=== PATIENT | male | born 1940 | race Caucasian/White ===

== ENCOUNTER 2021-09-04 08:52 | Observation (INO) ==
[2021-09-04] MEDS ORDERED: NS 0.9% 1000 ml BAG 1,000 ML IV ONE (09:03)
[2021-09-04] MEDS ORDERED: Iodixanol (CONTRAST) 320 MG/ML 100 ML SDV IV ONE (09:24)
[2021-09-04 09:47] LABS: ABS Eosinophils 0.2 10^3/ul (0-0.6); ABS Lymphocytes 1.3 10^3/ul (1.0-4.8); ABS Monocytes 0.3 10^3/ul (0-0.8); ABS Neutrophils 4.3 10^3/ul (1.5-7.7); Hematocrit 45 % (42-52); Hemoglobin 15.1 g/dL (14.0-18.0); Lymphocyte % 21.8 %; Mean Corpuscular HGB Conc 33 g/dL (31-36); Mean Corpuscular Hemoglobin 31 pg (27-31); Mean Corpuscular Volume 92 fL (80-94); Mean Platelet Volume 10.2 fL (7.4-10.4); Nucleated Red Blood Cells % 0.1; Platelet Count 186 10^3/uL (150-450); Red Blood Count 4.91 10^6 /uL (4.18-5.48); Red Cell Distribution Width 13 % (10-15); White Blood Count 6.2 10^3/uL (3.5-10.8)
[2021-09-04 10:00] LABS: Activated Partial Thrombo Time 29.3 seconds (26.0-38.0); INR 1.07 (0.86-1.15)
[2021-09-04 10:12] LABS: Albumin/Globulin Ratio 1.5 (1-3); Globulin 2.7 g/dL (2-4); HDL Cholesterol 45.3 mg/dL; Potassium 3.8 mmol/L (3.5-5.0); Total Bilirubin 1.3 mg/dL (0.2-1.0); Total Protein 6.7 g/dL (6.4-8.9); eGFR CKD-EPI 85.2 (>60)
[2021-09-04] MEDS ORDERED: Ondansetron 4 mg VIAL 2 MG/ML 2 ml VIAL IV PRN (17:59)
[2021-09-05 08:40] LABS: Albumin 3.6 g/dL (3.2-5.2); Albumin/Globulin Ratio 1.4 (1-3); Calcium 8.7 mg/dL (8.6-10.3); Globulin 2.5 g/dL (2-4); HDL Cholesterol 43.1 mg/dL; Potassium 4.2 mmol/L (3.5-5.0); Total Bilirubin 1.1 mg/dL (0.2-1.0); Total Protein 6.1 g/dL (6.4-8.9); eGFR CKD-EPI 86.9 (>60)
[2021-09-05 13:08] VITALS: BP 134/62
[2021-09-07 14:06] LABS: Free Protein S Antigen 115 % (65 - 160)
[2021-09-07 14:28] LABS: Coagulation Factor V Assay 110 % (70 - 165)
== END 2021-09-05 15:03 | disposition home or self-care (01) ==
LOC: ED 08:52 → EDHOLD 08:52 → MEDTELE 09:12
PROVIDERS: ADMIT Internal Medicine; ATTEND Internal Medicine

== ENCOUNTER 2022-09-12 10:40 | Observation (INO) ==
[2022-09-12 12:51] LABS: ABS Eosinophils 0.4 10^3/ul (0-0.6); ABS Lymphocytes 1.3 10^3/ul (1.0-4.8); ABS Monocytes 0.4 10^3/ul (0-0.8); ABS Neutrophils 4.6 10^3/ul (1.5-7.7); Eosinophil % 5.6 %; Hematocrit 43 % (42-52); Hemoglobin 14.9 g/dL (14.0-18.0); Lymphocyte % 18.9 %; Mean Corpuscular HGB Conc 35 g/dL (31-36); Mean Corpuscular Hemoglobin 31 pg (27-31); Mean Corpuscular Volume 89 fL (80-94); Mean Platelet Volume 8.8 fL (7.4-10.4); Nucleated Red Blood Cells % 0.1; Platelet Count 163 10^3/uL (150-450); Red Blood Count 4.84 10^6 /uL (4.18-5.48); Red Cell Distribution Width 13 % (10-15); White Blood Count 6.7 10^3/uL (3.5-10.8)
[2022-09-12 13:40] LABS: Albumin 3.9 g/dL (3.2-5.2); Albumin/Globulin Ratio 1.8 (1-3); Calcium 8.8 mg/dL (8.6-10.3); Globulin 2.2 g/dL (2-4); Potassium 4.5 mmol/L (3.5-5.0); Total Bilirubin 1.2 mg/dL (0.2-1.0); Total Protein 6.1 g/dL (6.4-8.9)
[2022-09-12 16:43] LABS: HDL Cholesterol 42.7 mg/dL
[2022-09-12] MEDS ORDERED: Iohexol 350 (CONTRAST) 500 ML MDV IV ONE (16:56)
[2022-09-13 05:32] LABS: ABS Eosinophils 0.5 10^3/ul (0-0.6); ABS Lymphocytes 1.5 10^3/ul (1.0-4.8); ABS Monocytes 0.5 10^3/ul (0-0.8); ABS Neutrophils 5.3 10^3/ul (1.5-7.7); Eosinophil % 6.2 %; Hematocrit 40 % (42-52); Lymphocyte % 19.3 %; Mean Corpuscular HGB Conc 35 g/dL (31-36); Mean Corpuscular Hemoglobin 31 pg (27-31); Mean Corpuscular Volume 88 fL (80-94); Mean Platelet Volume 9.1 fL (7.4-10.4); Platelet Count 157 10^3/uL (150-450); Red Blood Count 4.53 10^6 /uL (4.18-5.48); Red Cell Distribution Width 13 % (10-15); White Blood Count 7.8 10^3/uL (3.5-10.8)
[2022-09-13 06:34] LABS: Calcium 8.2 mg/dL (8.6-10.3); eGFR CKD-EPI 86.1 (>60)
[2022-09-13 16:00] VITALS: BP 132/60
== END 2022-09-13 19:15 | disposition home or self-care (01) ==
LOC: EDHOLD 10:40 → ED 10:40 → MEDTELE 09-13 09:02
PROVIDERS: ADMIT Internal Medicine; ATTEND Internal Medicine